=== PATIENT | female | born 1995 | race Caucasian/White ===

== ENCOUNTER 2018-02-06 08:26 | Emergency (ER) | payer BC, OTHER ==
[~2018-02-06] VITALS: Ht 261.6 cm; Wt 68.0 kg
[~2018-02-06 08:26] MED LIST: Amoxicillin500 MG PO; HYDACE5 PO; IBUP800 PO; Norco 5-325 Ta1 EACH PO; PREN-16 PO; Percocet 5-3251 EACH PO; Prednisone20 MG PO; Verotin-Gr Cap1 EACH PO
== END 2018-02-06 10:02 | disposition home or self-care (01) ==
LOC: ER 08:26
DX: H10.12 Acute atopic conjunctivitis, left eye (principal); F17.200 Nicotine dependence, unspecified, uncomplicated
CPT/HCPCS: 99283

== ENCOUNTER 2018-08-06 20:10 | Emergency (ER) | payer BC, OTHER ==
[~2018-08-06] VITALS: Ht 160 cm; Wt 79.4 kg
[2018-08-06] MEDS ORDERED: Tamiflu75 MG PO (20:33)
== END 2018-08-06 20:35 | disposition home or self-care (01) ==
LOC: ER 20:10
DX: O99.512 Diseases of the respiratory system complicating pregnancy, second trimester (principal); Z3A.21 21 weeks gestation of pregnancy; Z79.899 Other long term (current) drug therapy; F17.200 Nicotine dependence, unspecified, uncomplicated
CPT/HCPCS: 99282

== ENCOUNTER → 2018-11-23 | Outpatient (CLI) | payer BC, OTHER ==
[~2018-11-23] MED LIST changes: +IRON150C PO; +Lasix20 MG PO; +Tamiflu75 MG PO; +Zantac150 MG PO
[2018-11-26 07:07] LABS: CHLAMYDIA TRACHOMATIS, NAA Negative (Negative); NEISSERIA GONORRHOEAE, NAA Negative (Negative)
== END | disposition home or self-care (01) ==
LOC: LAB 18:04 → LAB SHORT 18:04
PROVIDERS: Family Medicine
DX: Z34.83 Encounter for supervision of other normal pregnancy, third trimester (principal); Z3A.36 36 weeks gestation of pregnancy
CPT/HCPCS: 87081; 87491; 87591; 87653

== ENCOUNTER 2018-12-01 15:28 | Inpatient (IN) | payer BC, OTHER ==
[~2018-12-01] VITALS: Ht 162.6 cm; Wt 90.3 kg
[~2018-12-01 15:28] MED LIST changes: -IRON150C PO; -Lasix20 MG PO; -Zantac150 MG PO
[2018-12-01] MEDS ORDERED: IRON150C PO (16:24)
[2018-12-01] MEDS ORDERED: Zantac150 MG PO (16:25)
[2018-12-01 16:40] LABS: BASOPHILS ABSOLUTE AUTO 0.02 K/mm3 (0.00-0.23); BASOPHILS PERCENT AUTO 0 % (0-2); EOSINOPHILS ABSOLUTE AUTO 0.06 K/mm3 (0.00-0.68); EOSINOPHILS PERCENT AUTO 1 % (0-6); Hematocrit 37.8 % (33.0-51.0); Hemoglobin 12.3 g/dL (11.5-16.0); IMMATURE GRAN ABSOLUTE AUTO 0.07 K/mm3 (0.00-0.10); IMMATURE GRAN PERCENT AUTO 1 % (0-1); LYMPHOCYTES ABSOLUTE AUTO 2.16 K/mm3 (0.84-5.20); LYMPHOCYTES PERCENT AUTO 20 % (21-46); MONOCYTES ABSOLUTE AUTO 0.47 K/mm3 (0.16-1.47); MONOCYTES PERCENT AUTO 4 % (4-13); Mean Corpuscular HGB 30.4 pg (26.0-34.0); Mean Corpuscular HGB Conc 32.5 g/dL (31.5-36.5); Mean Corpuscular Volume 94 fL (80-100); Mean Platelet Volume 12.7 fL (9.1-12.4); NEUTROPHILS ABSOLUTE AUTO 7.99 K/mm3 (1.96-9.15); NEUTROPHILS PERCENT AUTO 74 % (41-73); Platelet Count 171 K/mm3 (150-400); RDW Coefficient Variation 15.8 % (11.7-14.2); RDW Standard Deviation 54.1 fL (35.1-46.3); Red Blood Cell Count 4.04 M/mm3 (3.80-5.20); White Blood Cell Count 10.77 K/mm3 (4.00-11.30)
--- NOTE | 2018-12-02 23:06 | NUR ---
pt and fob listened to paternity video
[2018-12-03] MEDS ORDERED: IBUP800 PO (09:04)
[2018-12-03] MEDS ORDERED: Percocet 5-3251 EACH PO (09:05)
--- NOTE | 2018-12-03 10:43 | NUR ---
PT DISCHARGED HOME WITH NB AND SO. NO OBVIOUS SIGNS OF ACUTE DISTRESS. DISCHARGE INSTRUCTIONS REVIEWED WITH PT AND SO, BOTH VERBALIZED UNDERSTANDING AND DENY ANY FURTHER QUESTIONS OR CONCERNS. PRESCRIPTION FOR IBUPROFEN AND PERCOCET GIVEN.
== END 2018-12-03 10:10 | disposition home or self-care (01) | DRG 807 ==
LOC: OBS 15:28 → BC 15:41
PROVIDERS: ADMIT Obstetrics & Gynecology
PROC: 10E0XZZ Delivery of Products of Conception, External Approach (ICD-10-PCS; principal; 2018-12-02)
PROC: 3E033VJ Introduction of Other Hormone into Peripheral Vein, Percutaneous Approach (ICD-10-PCS; 2018-12-02)
DX: O99.334 Smoking (tobacco) complicating childbirth (principal); Z37.0 Single live birth; F17.200 Nicotine dependence, unspecified, uncomplicated; O99.824 Streptococcus B carrier state complicating childbirth; Z3A.37 37 weeks gestation of pregnancy; Z79.899 Other long term (current) drug therapy
CPT/HCPCS: 36415; 51702; 85025; J0290; J1885; J2210; J2590; J3010; J7120

== ENCOUNTER 2018-12-08 13:14 | Emergency (ER) | payer BC, OTHER ==
[~2018-12-08] VITALS: Ht 162.6 cm; Wt 82.5 kg
[~2018-12-08 13:14] MED LIST changes: +IRON150C PO; +Zantac150 MG PO
[2018-12-08 13:46] LABS: BASOPHILS ABSOLUTE AUTO 0.03 K/mm3 (0.00-0.23); BASOPHILS PERCENT AUTO 0 % (0-2); EOSINOPHILS ABSOLUTE AUTO 0.25 K/mm3 (0.00-0.68); EOSINOPHILS PERCENT AUTO 3 % (0-6); Hematocrit 38.7 % (33.0-51.0); Hemoglobin 12.5 g/dL (11.5-16.0); IMMATURE GRAN ABSOLUTE AUTO 0.04 K/mm3 (0.00-0.10); IMMATURE GRAN PERCENT AUTO 1 % (0-1); LYMPHOCYTES PERCENT AUTO 33 % (21-46); MONOCYTES ABSOLUTE AUTO 0.47 K/mm3 (0.16-1.47); MONOCYTES PERCENT AUTO 6 % (4-13); Mean Corpuscular HGB 31.5 pg (26.0-34.0); Mean Corpuscular HGB Conc 32.3 g/dL (31.5-36.5); Mean Platelet Volume 11.6 fL (9.1-12.4); NEUTROPHILS ABSOLUTE AUTO 4.15 K/mm3 (1.96-9.15); NEUTROPHILS PERCENT AUTO 57 % (41-73); Platelet Count 262 K/mm3 (150-400); RDW Coefficient Variation 14.6 % (11.7-14.2); RDW Standard Deviation 52.6 fL (35.1-46.3); Red Blood Cell Count 3.97 M/mm3 (3.80-5.20); White Blood Cell Count 7.34 K/mm3 (4.00-11.30)
[2018-12-08 13:49] LABS: Mean Corpuscular Volume 98 fL (80-100)
[2018-12-08 14:10] LABS: Alanine Aminotransfer (ALT/SGP 19 U/L (12-78); Albumin, Blood 3.1 g/dL (3.4-5.0); Albumin/Globulin Ratio 0.8 (0.8-1.8); Alk Phos 118 U/L (50-136); Anion Gap 8 mmol/L (6-16); Aspartate Aminotrans (AST/SGOT 16 U/L (12-37); Bilirubin, Total 0.3 mg/dL (0.1-1.0); Blood Urea Nitrogen 17 mg/dL (8-24); Bun/Creatinine Ratio 21.3 (12.0-20.0); CO2, Blood 22 mmol/L (21-32); Calcium, Blood 8.7 mg/dL (8.5-10.1); Chloride, Blood 114 mmol/L (98-108); Glomerular Filtration Rate >60 (60-); Glucose, Blood 78 mg/dL (70-99); Potassium, Blood 3.8 mmol/L (3.5-5.5); Sodium, Blood 144 mmol/L (136-145); Total Protein, Blood 7.1 g/dL (6.4-8.2); Troponin I <0.015 ng/mL (0.000-0.040)
[2018-12-08 14:41] LABS: Source, Urine Clean Catch
[2018-12-08 14:45] LABS: Bilirubin, Urine Neg (Neg); Blood, Urine 4+ (Neg); Glucose Qualitative, Urine Neg (Neg); Ketones, Urine Neg (Neg); Leukocyte Esterase, Urine Neg (Neg); Nitrite, Urine Neg (Neg); Protein, Urine Neg (Neg); Specific Gravity, Urine 1.015 (1.003-1.022); Urobilinogen, Urine NORM (Normal)
[2018-12-08 14:55] LABS: Appearance, Urine Clear (Clear); Color, Urine Yellow (P-Yellow)
[2018-12-08 15:01] LABS: White Blood Cells, Urine 0-2 /hpf (0-5)
[2018-12-08 15:04] LABS: Bacteria Mod /hpf; Squamous Epithelial Cells Mod /hpf (Few)
[2018-12-08] MEDS ORDERED: Lasix20 MG PO (16:47)
[2018-12-08 16:56] LABS: Free Thyroxine 1.01 ng/dL (0.70-1.60)
[2018-12-08 16:57] LABS: Thyroid Stimulating Hormone 1.17 uIU/mL (0.360-4.800); Triiodothyronine, Free 2.64 pg/mL (2.18-3.98)
== END 2018-12-08 17:35 | disposition home or self-care (01) ==
LOC: ER 13:14
PROVIDERS: Physician Assistant
DX: O99.89 Other specified diseases and conditions complicating pregnancy, childbirth and the puerperium (principal); R00.1 Bradycardia, unspecified; R06.00 Dyspnea, unspecified; F17.200 Nicotine dependence, unspecified, uncomplicated
CPT/HCPCS: 36415; 71260; 80053; 81001; 83880; 84439; 84443; 84481; 84484; 85025; 93005; 93010; 99285-25; Q9967

== ENCOUNTER 2018-12-12 20:16 | Emergency (ER) | payer BC, OTHER ==
[~2018-12-12] VITALS: Ht 162.6 cm; Wt 81.7 kg
[~2018-12-12 20:16] MED LIST changes: +Lasix20 MG PO
[2018-12-12 21:27] LABS: BASOPHILS ABSOLUTE AUTO 0.03 K/mm3 (0.00-0.23); BASOPHILS PERCENT AUTO 1 % (0-2); EOSINOPHILS PERCENT AUTO 3 % (0-6); Hematocrit 47.7 % (33.0-51.0); Hemoglobin 15.5 g/dL (11.5-16.0); IMMATURE GRAN ABSOLUTE AUTO 0.01 K/mm3 (0.00-0.10); IMMATURE GRAN PERCENT AUTO 0 % (0-1); LYMPHOCYTES ABSOLUTE AUTO 3.05 K/mm3 (0.84-5.20); LYMPHOCYTES PERCENT AUTO 46 % (21-46); MONOCYTES ABSOLUTE AUTO 0.27 K/mm3 (0.16-1.47); MONOCYTES PERCENT AUTO 4 % (4-13); Mean Corpuscular HGB 30.8 pg (26.0-34.0); Mean Corpuscular HGB Conc 32.5 g/dL (31.5-36.5); NEUTROPHILS ABSOLUTE AUTO 3.02 K/mm3 (1.96-9.15); NEUTROPHILS PERCENT AUTO 46 % (41-73); Platelet Count 339 K/mm3 (150-400); RDW Coefficient Variation 13.9 % (11.7-14.2); RDW Standard Deviation 49.1 fL (35.1-46.3); Red Blood Cell Count 5.04 M/mm3 (3.80-5.20); White Blood Cell Count 6.58 K/mm3 (4.00-11.30)
[2018-12-12 21:46] LABS: Alanine Aminotransfer (ALT/SGP 22 U/L (12-78); Alk Phos 126 U/L (50-136); Anion Gap 8 mmol/L (6-16); Aspartate Aminotrans (AST/SGOT 14 U/L (12-37); Bilirubin, Total 0.3 mg/dL (0.1-1.0); Blood Urea Nitrogen 15 mg/dL (8-24); Bun/Creatinine Ratio 16.6 (12.0-20.0); CO2, Blood 25 mmol/L (21-32); Calcium, Blood 8.8 mg/dL (8.5-10.1); Chloride, Blood 108 mmol/L (98-108); Globulin, Blood 4.2 g/dL (2.2-4.0); Glomerular Filtration Rate >60 (60-); Glucose, Blood 79 mg/dL (70-99); Potassium, Blood 3.6 mmol/L (3.5-5.5); Sodium, Blood 141 mmol/L (136-145); Total Protein, Blood 8.2 g/dL (6.4-8.2)
[2018-12-12 23:36] LABS: Mean Corpuscular Volume 95 fL (80-100)
[2018-12-12] MEDS ORDERED: Lasix20 MG PO (23:49)
== END 2018-12-13 00:14 | disposition home or self-care (01) ==
LOC: ER 20:16
PROVIDERS: Physician Assistant
DX: R00.2 Palpitations (principal); Z79.899 Other long term (current) drug therapy; F17.200 Nicotine dependence, unspecified, uncomplicated
CPT/HCPCS: 36415; 71046; 80053; 83880; 84484; 85025; 93005; 93010; 99285-25

== ENCOUNTER 2019-10-15 22:17 | Emergency (ER) | payer BC, OTHER ==
[~2019-10-15] VITALS: Ht 162.6 cm; Wt 77.1 kg
[2019-10-15] MEDS ORDERED: METOPROLOL SUCC25 MG PO (22:27)
[2019-10-15] MEDS ORDERED: IBUP600 PO (22:33)
[2019-10-15] MEDS ORDERED: Cleocin HCl300 MG PO (22:33)
== END 2019-10-15 22:43 | disposition home or self-care (01) ==
LOC: ER 22:17
DX: K08.89 Other specified disorders of teeth and supporting structures (principal); F17.200 Nicotine dependence, unspecified, uncomplicated; Z79.899 Other long term (current) drug therapy
CPT/HCPCS: 99282; A9270; A9270-GY

== ENCOUNTER 2019-10-28 18:58 | Emergency (ER) | payer BC, OTHER ==
[~2019-10-28] VITALS: Ht 160 cm; Wt 77.1 kg
[~2019-10-28 18:58] MED LIST changes: +Cleocin HCl300 MG PO; +IBUP600 PO; +METOPROLOL SUCC25 MG PO
[2019-10-28] MEDS ORDERED: PENVK500 PO (19:49)
[2019-10-28] MEDS ORDERED: IBU600 MG PO (19:49)
== END 2019-10-28 20:33 | disposition home or self-care (01) ==
LOC: ER 18:58
DX: K02.9 Dental caries, unspecified (principal); F17.200 Nicotine dependence, unspecified, uncomplicated
CPT/HCPCS: 99282; A9270-GY

== ENCOUNTER → 2020-05-21 | Outpatient (CLI) | payer OTHER ==
[~2020-05-21] MED LIST changes: +IBU600 MG PO; +PENVK500 PO
== END ==
LOC: LAB 16:32 → LAB SHORT 16:32
DX: R30.0 Dysuria (principal)
CPT/HCPCS: 87077; 87086; 87186

== ENCOUNTER 2020-12-28 20:58 | Emergency (ER) | payer BC, OTHER ==
[~2020-12-28] VITALS: Ht 162.6 cm; Wt 74.8 kg
[2020-12-28 22:03] LABS: Source, Urine Clean Catch
[2020-12-28 22:08] LABS: Appearance, Urine Clear (Clear); Blood, Urine 5+ (Neg); Glucose Qualitative, Urine Neg (Neg); Ketones, Urine Neg (Neg); Leukocyte Esterase, Urine 3+ (Neg); Nitrite, Urine Pos (Neg); Protein, Urine 2+ (Neg); Urobilinogen, Urine 3+ (Normal)
[2020-12-28 22:09] LABS: Bilirubin, Urine 3+ (Neg); Color, Urine Orange (P-Yellow)
[2020-12-28 22:18] LABS: Bacteria Mod /hpf; Squamous Epithelial Cells Few /hpf (Few); White Blood Cells, Urine 50-100 /hpf (0-5)
[2020-12-28] MEDS ORDERED: NITR100CA PO (22:28)
== END 2020-12-28 22:42 | disposition home or self-care (01) ==
LOC: ER 20:58
PROVIDERS: Physician Assistant
DX: N39.0 Urinary tract infection, site not specified (principal); F17.200 Nicotine dependence, unspecified, uncomplicated; Z79.899 Other long term (current) drug therapy
CPT/HCPCS: 81001; 81025; 87086; 99283; A9270

== ENCOUNTER 2023-04-11 02:55 | Emergency (ER) | payer OTHER ==
[~2023-04-11] VITALS: Ht 160 cm; Wt 95.2 kg
[~2023-04-11 02:55] MED LIST changes: +NITR100CA PO
[2023-04-11 03:08] VITALS: BP 132/80
[2023-04-11] MEDS ORDERED: CLIN300 PO (03:17)
== END 2023-04-11 03:23 | disposition home or self-care (01) ==
LOC: ER 02:55
DX: S02.5XXA Fracture of tooth (traumatic), initial encounter for closed fracture (principal); K04.7 Periapical abscess without sinus; X58.XXXA Exposure to other specified factors, initial encounter
CPT/HCPCS: 99282; A9270

== ENCOUNTER 2024-12-27 11:38 | Day surgery (SDC) | payer BC, OTHER ==
[~2024-12-27] VITALS: Ht 162.6 cm; Wt 84.1 kg
[~2024-12-27 11:38] MED LIST changes: +CLIN300 PO
[2024-12-27] MEDS ORDERED: Rocuronium Bromide 10 MG/ML 5ML Injection IV ONE (12:52)
[2024-12-27] MEDS ORDERED: FentaNYL Citrate 50 MCG/ML 2 ML Injection ONE (12:53)
[2024-12-27] MEDS ORDERED: Ondansetron HCl 2 MG / ML 2ML Vial ONE (12:54)
[2024-12-27] MEDS ORDERED: Dexamethasone Sod Phos 10 MG/ML 1ML VIAL ONE (12:54)
[2024-12-27] MEDS ORDERED: Sugammadex Sodium 200 MG/2ML SDV (100 MG/ML) ONE (13:45)
--- NOTE | 2024-12-27 13:53 | NUR ---
12/27/24 1353 Fallon Vazquez PEARL AREA PREPPED BY ODX WITH BETADINE SOLUTION, ABDOMINAL AREA PREPPED BY TMG WITH DURAPREP
[2024-12-27] MEDS ORDERED: Bupivacaine 0.5% W/EPI 1:200000 SDV 30 ML Vial INJ ONE (13:55)
--- NOTE | 2024-12-27 14:40 | NUR ---
12/27/24 1440 SERAFIN FORMAN CURRENTLY PAIN 6-11/15 PLAN IS TO HAVE PT EAT SOMETHING AND THEN GET A PO PAIN MED
--- NOTE | 2024-12-27 14:58 | NUR ---
12/27/24 0372 SERAFIN FORMAN PT CONTINUES TO DENY NAUSEA. EATING AT THIS TIME WO DIFF
[2024-12-27] MEDS ORDERED: OxyCODONE 5 mg/Acetamin 325 mg TABLET ONE (15:13)
[2024-12-27 15:21] VITALS: BP 112/79
== END 2024-12-27 15:48 | disposition home or self-care (01) ==
LOC: ORSCSDS 11:38
PROVIDERS: Obstetrics & Gynecology
PROC: 0UT74ZZ Resection of Bilateral Fallopian Tubes, Percutaneous Endoscopic Approach (ICD-10-PCS; principal; 2024-12-27 13:00)
DX: Z30.2 Encounter for sterilization (principal); E66.9 Obesity, unspecified; Z68.31 Body mass index [BMI] 31.0-31.9, adult
CPT/HCPCS: 88302; A9270; J1100; J2405; J2704; J3010; J7120

== ENCOUNTER 2025-04-07 03:05 | Emergency (ER) | payer BC, OTHER ==
[~2025-04-07] VITALS: Ht 162.6 cm; Wt 86.2 kg
[2025-04-07 03:18] VITALS: BP 115/78
[2025-04-07] MEDS ORDERED: Ketorolac Tromethamine 15mg Vial IV ONE (03:50)
[2025-04-07] MEDS ORDERED: RX Prepack 6 Tabs Oxycodone 5mg UD ONE (04:15)
== END 2025-04-07 04:26 | disposition home or self-care (01) ==
LOC: ER 03:05
DX: S33.8XXA Sprain of other parts of lumbar spine and pelvis, initial encounter (principal); F17.200 Nicotine dependence, unspecified, uncomplicated; W10.9XXA Fall (on) (from) unspecified stairs and steps, initial encounter
CPT/HCPCS: 72220; 96374; 99283-25; A9270; J1885